=== PATIENT | male | born 1955 | race Caucasian/White ===

== ENCOUNTER → 2016-09-27 | Outpatient (CLI) | payer BC ==
[~2016-09-27] MED LIST: IBUP-1050 PO
--- NOTE | 2016-09-27 13:10 | DIAGNOSTIC IMAGING REPORT ---
MRI OF THE LUMBAR SPINE WITHOUT IV CONTRAST CLINICAL HISTORY: Chronic low back pain. Right lower extremity radiculopathy. COMPARISON STUDY: No priors. TECHNIQUE: MRI of the lumbar spine is performed utilizing various T1 and T2-weighted sequences in the axial and sagittal planes. IV contrast was not administered for this examination. FINDINGS: Lumbar spine: Vertebral body height is maintained throughout the lumbar spine. There is straightening of the lumbar lordosis with reversal at L3. Minimal retrolisthesis is seen at L3-L4. Alignment is otherwise preserved. Anterior osteophytes are seen throughout. The transverse and spinous processes appear intact. There is no evidence of spondylolysis. Chronic degenerative endplate changes are seen from L1-L2 through L4-L5. Significant degenerative endplate edema is noted at L2-L3. No destructive bony lesion is seen. Intervertebral discs: There is degenerative disc desiccation seen throughout the lumbar spine. Advanced loss of height is noted at L1-L2 through L3-L4. Moderate loss of height is present at L4-L5 and L5-S1. Spinal cord: The visualized spinal cord is normal in morphology and signal intensity. The conus medullaris terminates at the level of L1. The nerve roots of the cauda equina are tethered at L4-L5. T12-L1: Unremarkable. L1-L2: There is a small posterior disc bulge and annular fissure. This causes minimal bilateral subarticular stenosis. The central canal and neural foramina are widely patent. L2-L3: There is a broad-based posterior disc bulge eccentric to the left with annular fissure. This causes mild acquired compromise of the central canal with a minimum AP diameter of 7.5 mm. There is bilateral subarticular stenosis, left greater than right. This likely abuts the exiting left L2 nerve root. There is mild left-sided neural foraminal stenosis secondary to facet arthropathy. L3-L4: There is a small posterior disc bulge eccentric to the right with annular fissure. There is no significant acquired compromise of the central canal at this level. There is bilateral subarticular stenosis, right greater than left. There may be impingement on the exiting right L3 nerve root. L4-L5: There is a large disc herniation eccentric to the right. This causes severe acquired compromise of the central canal with a minimum AP diameter of 3 mm. This impinges on the transiting right-sided nerve roots. The neural foramina appear patent. The herniated disc fragment measures up to 1.6 cm. L5-S1: There is a small posterior disc bulge. The central canal is widely patent. Facet arthropathy causes moderate left and mild right neural foraminal stenosis. Sacrum: The visualized sacrum is normal in morphology and signal intensity. Soft tissues: The paraspinous soft tissues are within normal limits. The partially imaged retroperitoneal structures are grossly unremarkable, but incompletely evaluated. IMPRESSION: 1. There is a large disc herniation eccentric to the right at L4-L5. This causes severe central canal stenosis and impinges on the transiting right-sided nerve roots. 2. Lumbosacral spondylosis at additional levels with additional foci of mild acquired compromise of the central canal. See discussion for detailed level by level analysis. 3. Degenerative disc disease as above with significant degenerative endplate edema at L2-L3. Dictated: 09/27/2016 12:44 PM Transcribed: 09/27/2016 1:09 PM [email or web address] Electronically signed by: Glenn Todd M.D. 09/27/2016 1:19 PM Dictated Date/Time: 09/27/2016 12:44 PM
== END | disposition home or self-care (01) ==
LOC: C.MRI 10:34
PROVIDERS: ATTEND Family Medicine
DX: M51.16 Intervertebral disc disorders with radiculopathy, lumbar region (principal)

== ENCOUNTER → 2017-04-06 | Outpatient (CLI) | payer BC | END | disposition home or self-care (01) | LOC: C.CTS 07:34 | PROVIDERS: ATTEND Orthopaedic Surgery | DX: M19.011 Primary osteoarthritis, right shoulder (principal) ==